=== PATIENT | female | born 1975 | race Caucasian/White ===

== ENCOUNTER 2016-11-04 10:57 | Emergency (ER) | payer OTHER ==
[2016-11-04 11:44] VITALS: BP 100/73; PULSE 72; RESP 20; TEMP 98.2; O2SAT 95
[2016-11-04] MEDS ORDERED: AZITHROMYCIN 250 MG TAB PO ONE (13:48)
[2016-11-04] MEDS ORDERED: DOXYCYCLINE 100 MG TAB PO SCH (14:00)
[2016-11-04] MEDS ORDERED: AZITHROMYCIN 250 MG TAB ONE (14:01)
[2016-11-04] MEDS ORDERED: HEPATITIS B VACCINE(ADULT) 20 MCG/ML SUS IM ONE ×2 (14:32→14:46)
[2016-11-05] MEDS ORDERED: DOXYCYCLINE 100 MG TAB ONE (08:21)
== END 2016-11-04 14:50 | disposition home or self-care (01) ==
LOC: ED 10:57
DX: T74.21XA Adult sexual abuse, confirmed, initial encounter (principal); Y07.50 Unspecified non-family member, perpetrator of maltreatment and neglect
CPT/HCPCS: 90746; 99283

== ENCOUNTER 2017-01-26 19:29 | Emergency (ER) | payer SELFPAY ==
[2017-01-26] MEDS ORDERED: ACETAMI/HYDROCO 325/10 TAB PO ONE (19:59)
[2017-01-26] MEDS ORDERED: ACETAMINOPHEN 500 MG 500 MG TAB PO ONE (20:01)
[2017-01-26] MEDS ORDERED: APAP/HYDROCODONE 325/5 TAB ONE (20:03)
[2017-01-26] MEDS ORDERED: APAP/HYDROCODONE 325/5 TAB PO ONE (20:05)
[2017-01-26 20:10] LABS: BASOPHILS % (AUTO) 1 % (0-3); EOSINOPHILS % (AUTO) 1 % (0-9); HEMATOCRIT 39 % (35-47); MEAN CORPUSCULAR HGB CONC 35.1 gm/dl (32.0-36.0); MEAN CORPUSCULAR VOLUME 92 fL (81-99); MONOCYTES % (AUTO) 7.4 % (0-12); NEUTROPHILS % (AUTO) 62.5 % (37-80)
[2017-01-26 20:11] VITALS: RESP 20
[2017-01-26 20:20] LABS: POTASSIUM 3.7 mMol/L (3.5-5.1)
[2017-01-26 20:30] VITALS: BP 102/63; PULSE 71; TEMP 97; O2SAT 93
[2017-01-26] MEDS ORDERED: PREDNISONE 20 MG TAB ONE (20:56)
[2017-01-26] MEDS ORDERED: PREDNISONE 20 MG TAB PO ONE (20:56)
== END 2017-01-26 21:05 | disposition home or self-care (01) | DRG 192 ==
LOC: ED 19:29
DX: J44.0 Chronic obstructive pulmonary disease with (acute) lower respiratory infection (principal); J20.9 Acute bronchitis, unspecified; Z72.0 Tobacco use; R07.89 Other chest pain
CPT/HCPCS: 71020; 80048; 85025; 99283

== ENCOUNTER 2017-01-27 12:57 | Emergency (ER) | payer SELFPAY ==
[2017-01-27 13:13] VITALS: RESP 20; TEMP 98.7
[2017-01-27] MEDS ORDERED: KETOROLAC TROMETHAMINE 30 MG/ML SOL IM ONE (13:16)
[2017-01-27] MEDS ORDERED: KETOROLAC TROMETHAMINE 30 MG/ML SOL ONE (13:20)
[2017-01-27 14:57] VITALS: BP 104/82; PULSE 90; O2SAT 96
== END 2017-01-27 14:50 | disposition home or self-care (01) | DRG 206 ==
LOC: ED 12:57
DX: S22.32XA Fracture of one rib, left side, initial encounter for closed fracture (principal); Z72.0 Tobacco use
CPT/HCPCS: 71101; 99283; J1885

== ENCOUNTER 2017-03-22 14:34 | Emergency (ER) | payer SELFPAY ==
[2017-03-22 14:55] VITALS: TEMP 99.2
[2017-03-22 14:56] VITALS: O2SAT 99
[2017-03-22 15:08] LABS: BASOPHILS % (AUTO) 1 % (0-3); EOSINOPHILS % (AUTO) 1 % (0-9); HEMATOCRIT 40 % (35-47); MEAN CORPUSCULAR HGB CONC 33.5 gm/dl (32.0-36.0); MEAN CORPUSCULAR VOLUME 96 fL (81-99); MONOCYTES % (AUTO) 6.2 % (0-12); NEUTROPHILS % (AUTO) 62.6 % (37-80)
[2017-03-22 15:19] VITALS: BP 107/73; PULSE 90; RESP 17
[2017-03-22 15:21] LABS: CALCIUM 8.9 mg/dl (8.5-10.1); POTASSIUM 3.6 mMol/L (3.5-5.1)
== END 2017-03-22 15:45 | disposition home or self-care (01) | DRG 74 ==
LOC: ED 14:34
DX: G51.0 Bell's palsy (principal); R29.702 NIHSS score 2; R40.2142 Coma scale, eyes open, spontaneous, at arrival to emergency department; R40.2362 Coma scale, best motor response, obeys commands, at arrival to emergency department; R40.2252 Coma scale, best verbal response, oriented, at arrival to emergency department
CPT/HCPCS: 36415; 70450; 80053; 85025; 99284

== ENCOUNTER 2017-09-16 18:18 | Emergency (ER) | payer SELFPAY ==
[2017-09-16 18:38] LABS: APPEARANCE,URINE Cloudy; BILIRUBIN,URINE NEGATIVE (NEGATIVE); COLOR,URINE Yellow; GLUCOSE, URINE (UA) NEGATIVE (NEGATIVE); KETONES,URINE TRACE (NEGATIVE); NITRATE,URINE POSITIVE (NEGATIVE); OCCULT BLOOD,URINE 3+ (NEG-TRACE); UROBILINOGEN,URINE 0.2 (0.2-1.0 EU)
[2017-09-16] MEDS ORDERED: KETOROLAC TROMETHAMINE 30 MG/ML SOL IV ONE (18:39)
[2017-09-16] MEDS ORDERED: CEFTRIAXONE 1 GM PDS ONE ×2 (18:42→19:19)
[2017-09-16] MEDS ORDERED: KETOROLAC TROMETHAMINE 30 MG/ML SOL ONE (18:43)
[2017-09-16] MEDS: SODIUM CHLORIDE 0.9% FLUSH 10 ML SOL IV PRN ×2 (19:00→19:02)
[2017-09-16 19:08] VITALS: RESP 13
[2017-09-16 19:10] LABS: LACTIC ACID 0.8 mMol/L (0.0-2.0)
[2017-09-16 19:10] LABS: LEUKOCYTE ESTERASE ,URINE 2+ (NEGATIVE)
[2017-09-16 19:14] LABS: BILIRUBIN,TOTAL 0.6 mg/dl (0.2-1.0); CALCIUM 9.2 mg/dl (8.5-10.1); CARBON DIOXIDE 28.4 mEq/L (21-32); CREATININE 0.73 mg/dl (0.60-1.00); TOTAL PROTEIN 7.5 gm/dl (6.4-8.2)
[2017-09-16] MEDS ORDERED: CEFTRIAXONE 1 GM PDS 1 GM in SODIUM CHLORIDE 0.9% 50 ML 50 ML IV ONE (19:16)
[2017-09-16 19:19] LABS: BASOPHILS % (AUTO) 1 % (0-3); EOSINOPHILS % (AUTO) 0 % (0-9); HEMATOCRIT 43 % (35-47); HEMOGLOBIN 15.1 gm/dl (12.0-15.5); MEAN CORPUSCULAR HEMOGLOBIN 31.8 pg (27.0-32.0); MEAN CORPUSCULAR HGB CONC 34.8 gm/dl (32.0-36.0); MEAN CORPUSCULAR VOLUME 91 fL (81-99); MONOCYTES % (AUTO) 7.3 % (0-12); NEUTROPHILS % (AUTO) 79.2 % (37-80)
[2017-09-16] MEDS ORDERED: SODIUM CHLORIDE 0.9% 50 ML 50 ML IV PRN (19:46)
[2017-09-16 20:01] VITALS: BP 101/76; PULSE 89; TEMP 98.6; O2SAT 96
== END 2017-09-16 20:00 | disposition home or self-care (01) | DRG 690 ==
LOC: ED 18:18
DX: N12 Tubulo-interstitial nephritis, not specified as acute or chronic (principal)
CPT/HCPCS: 36415; 80053; 81001; 85025; 87077; 87088; 87186; 96365; 96374; 99283; 99285; J0696; J1885

== ENCOUNTER 2018-10-28 13:31 | Inpatient (IN) | payer SELFPAY ==
[2018-10-28] MEDS ORDERED: CEFTRIAXONE 1 GM PDS 1 GM in SODIUM CHLORIDE 0.9% 50 ML 50 ML IV ONE (14:10)
[2018-10-28] MEDS ORDERED: SODIUM CHLORIDE 0.9% 1000ML 1,000 ML IV ONE (14:12)
[2018-10-28 14:39] VITALS: RESP 16
[2018-10-28] MEDS ORDERED: SODIUM CHLORIDE 0.9% 50 ML 50 ML IV ONE (14:43)
[2018-10-28] MEDS ORDERED: CEFTRIAXONE 1 GM PDS ONE (14:43)
[2018-10-28] MEDS: SODIUM CHLORIDE 0.9% FLUSH 10 ML SOL IV SCH (15:10)
[2018-10-28] MEDS: IBUPROFEN 600 MG TAB PO SCH ×2 (16:56→20:40)
[2018-10-28] MEDS: DEXTROSE/SALINE 0.45/KCL 20MEQ 1,000 ML/1,000 ML SOL IV SCH ×2 (16:57→22:07)
[2018-10-28] MEDS ORDERED: BUPROPION XL 300 MG T24 PO SCH (17:45)
[2018-10-28] MEDS ORDERED: NICOTINE 21 MG PATCH TD SCH (18:00)
[2018-10-28] MEDS ORDERED: [UNRECOGNIZED DRUG - OTHER] PO SCH (18:30)
[2018-10-29] MEDS: SODIUM CHLORIDE 0.9% FLUSH 10 ML SOL IV SCH ×2 (02:22→06:51)
[2018-10-29] MEDS: DEXTROSE/SALINE 0.45/KCL 20MEQ 1,000 ML/1,000 ML SOL IV SCH (03:15)
[2018-10-29] MEDS ORDERED: DEXTROSE/SALINE 0.45/KCL 20MEQ 1,000 ML/1,000 ML SOL IV SCH (03:22)
[2018-10-29 06:47] VITALS: BP 108/65; PULSE 60; TEMP 97.7; O2SAT 97
[2018-10-29 07:03] LABS: BASOPHILS % (AUTO) 1 % (0-3); EOSINOPHILS % (AUTO) 4 % (0-9); HEMATOCRIT 38 % (35-47); HEMOGLOBIN 12.4 gm/dl (12.0-15.5); LYMPHOCYTES % (AUTO) 39.7 % (10-50); MEAN CORPUSCULAR HEMOGLOBIN 32.7 pg (27.0-32.0); MEAN CORPUSCULAR HGB CONC 32.3 gm/dl (32.0-36.0); NEUTROPHILS % (AUTO) 47.2 % (37-80)
[2018-10-29 07:18] LABS: CALCIUM 8.1 mg/dl (8.5-10.1); CREATININE 0.67 mg/dl (0.60-1.00)
[2018-10-29 07:22] LABS: MEAN CORPUSCULAR VOLUME 101 fL (81-99)
[2018-10-29 07:24] LABS: CARBON DIOXIDE 26.1 mEq/L (21-32)
[2018-10-29] MEDS ORDERED: CEFTRIAXONE 1 GM PDS ONE (07:45)
[2018-10-29] MEDS ORDERED: SODIUM CHLORIDE 0.9% 50 ML 50 ML IV ONE (07:45)
[2018-10-29] MEDS ORDERED: CEFTRIAXONE 1 GM PDS 1 GM in SODIUM CHLORIDE 0.9% 50 ML 50 ML IV ONE (08:30)
[2018-10-29] MEDS: IBUPROFEN 600 MG TAB PO SCH (08:31)
== END 2018-10-29 09:02 | disposition home or self-care (01) | DRG 690 ==
LOC: ED 13:31 → UNDOADMIN 13:31 → ACUTE CARE 13:31 → UNDOADMIN 14:01 → ACUTE CARE 14:10 → EDSTATUS 15:20
PROVIDERS: ADMIT Family Medicine; ATTEND Family Medicine
DX: N30.01 Acute cystitis with hematuria (principal); D72.825 Bandemia; Z72.0 Tobacco use; M54.5 Low back pain; R10.9 Unspecified abdominal pain
CPT/HCPCS: 36415; 74176; 80048; 85025; 87040; 99070; J0696; A9270-GY